=== PATIENT | female | born 2000 | race African-American/Black ===

== ENCOUNTER 2018-05-06 05:55 | Day surgery (SDC) | payer OTHER ==
[~2018-05-06] VITALS: Ht 154.9 cm; Wt 70.3 kg
[2018-05-06] MEDS ORDERED: BUPIVACAINE-MPF/EPI 0.5% 30 ML VIAL INJ ONE (08:38)
[2018-05-06] MEDS ORDERED: ACETAMINOPHEN/CODEINE 300/30MG 1 TAB PO PRN (08:40)
[2018-05-06] MEDS ORDERED: MORPHINE SULFATE 4 MG/ML SYR IM/IVP PRN (08:40)
[2018-05-06] MEDS ORDERED: ONDANSETRON 4 MG/2 ML VIAL IVP PRN ×2 (08:40→09:25)
[2018-05-06] MEDS ORDERED: IBUPROFEN 800 MG TAB PO PRN (08:40)
[2018-05-06] MEDS ORDERED: PROPOFOL 200 MG/20 ML VIAL IV ONE (08:50)
[2018-05-06] MEDS ORDERED: DEXAMETHASONE 4 MG/ML VIAL ONE (08:50)
[2018-05-06] MEDS ORDERED: SEVOFLURANE 250 ML BTL INH ONE (08:50)
[2018-05-06] MEDS ORDERED: ONDANSETRON 4 MG/2 ML VIAL ONE (08:50)
[2018-05-06] MEDS ORDERED: SUCCINYLCHOLINE CHLORIDE 200 MG/10 ML VIAL IVP ONE (08:50)
[2018-05-06] MEDS ORDERED: MIDAZOLAM 2 MG/2 ML VIAL ONE (08:51)
[2018-05-06] MEDS ORDERED: fentaNYL 0.05 MG/ML VIAL ONE (08:51)
[2018-05-06] MEDS ORDERED: MEPERIDINE 50 MG/ML SYR ONE (08:52)
[2018-05-06] MEDS ORDERED: diphenhydrAMINE 50 MG/ML VIAL IVP PRN (09:25)
[2018-05-06] MEDS ORDERED: MEPERIDINE 25 MG/ML SYR IVP PRN (09:25)
[2018-05-06] MEDS: HYDROmorphone 1 MG/ML AMP IVP PRN ×2 (10:20→10:30)
[2018-05-06] MEDS ORDERED: HYDROmorphone PFS 2 MG/ML SYR ONE (10:26)
[2018-05-06] MEDS: LACTATED RINGERS 1,000 ML IV SCH ×2 (10:33→10:42)
== END 2018-05-06 12:05 | disposition home or self-care (01) ==
LOC: MDS 05:55 → MMU 06:06 → MDS 12:05
PROVIDERS: ATTEND Obstetrics & Gynecology
DX: N83.292 Other ovarian cyst, left side (principal); N83.291 Other ovarian cyst, right side; N94.6 Dysmenorrhea, unspecified; Z98.890 Other specified postprocedural states; Z72.0 Tobacco use; Z88.6 Allergy status to analgesic agent; Z88.5 Allergy status to narcotic agent
CPT/HCPCS: 58662; 82374; J0330; J0690; J1100; J1170; J2250; J2405; J2704; J3010; J3490; J7060; J7120; J2175

== ENCOUNTER 2018-05-10 14:39 | Emergency (ER) | payer OTHER ==
[~2018-05-10] VITALS: Ht 154.9 cm; Wt 70.3 kg
[2018-05-10 14:44] VITALS: BP 135/73
--- NOTE | 2018-05-10 14:55 | NUR ---
PT AMBULATED TO ED BED 9 BY [facility]. Abd pain/back pain s/p surgery 5 days ago, had a laparscopic surgery to remove cyst, but per pt,"they didn't remove it b/c she had a lot of scar tissue secondary to ." No redness or swelling noted to incision site. Pt denies fevers.naysea/vomtting. Last BM 6 days ago, passing gas. Pain 10/10. On [place], but making her itch a lot. ABD SOFT TENDER. med hx: none Rx:norco
[2018-05-10] MEDS ORDERED: NACL 0.9% 1,000 ML IV SCH (14:57)
[2018-05-10] MEDS ORDERED: ONDANSETRON 4 MG/2 ML VIAL IVP ONE (15:00)
[2018-05-10] MEDS ORDERED: fentaNYL 0.05 MG/ML VIAL IVP ONE (15:00)
[2018-05-10 15:22] LABS: BASOPHILS % (AUTO) 0.2 % (0.0-2.0); EOSINOPHILS # (AUTO) 0.1 K/uL (0-0.4); HEMATOCRIT 42.4 % (36-48); HEMOGLOBIN 13.7 g/dL (12.0-16.0); LYMPHOCYTES % (AUTO) 15.8 % (20.5-51.1); MEAN CORPUSCULAR HEMOGLOBIN 29 pg (27-31); MEAN CORPUSCULAR HGB CONC 32 g/dL (33-37); MEAN CORPUSCULAR VOLUME 89.7 fL (80-94); MONOCYTES # (AUTO) 0.9 K/uL (0.8-1.0); MONOCYTES % (AUTO) 7.1 % (1.7-9.3); NEUTROPHILS # (AUTO) 9.5 K/uL (1.8-7.7); NEUTROPHILS % (AUTO) 75.9 % (42.2-75.2); PLATELET COUNT (AUTO) 306 K/uL (140-450); RED BLOOD CELL COUNT(AUTO) 4.73 MIL/uL (4.20-5.40); RED CELL DISTRIBUTION WIDTH 13.2 % (11.6-13.7); WHITE BLOOD COUNT (AUTO) 12.6 K/uL (4.5-11.0)
[2018-05-10 15:41] LABS: ANION GAP 12.7 (8-16); CARBON DIOXIDE 25.4 mmol/L (21-32); CREATININE 0.6 mg/dL (0.6-1.3); POTASSIUM 4.1 mmol/L (3.5-5.1)
--- NOTE | 2018-05-10 15:42 | NUR ---
EDMD OKAYED GIVING PAIN MEDICATION WITHOUT URINE HCG D/T SEVERITY OF PAIN PT WAS IN.
[2018-05-10 15:45] LABS: ALBUMIN 3.9 g/dL (3.4-5.0); TOTAL BILIRUBIN 0.3 mg/dL (0.0-1.0)
--- NOTE | 2018-05-10 16:55 | NUR ---
handed pt 3rd cup of b50---sphtehmqky to provide urine sample
[2018-05-10 17:21] VITALS: BP 128/69
[2018-05-10 17:22] LABS: APPEARANCE,URINE CLEAR (CLEAR); BILIRUBIN,URINE NEGATIVE (NEGATIVE); BLOOD, URINE NEGATIVE (NEGATIVE); COLOR,URINE YELLOW (YELLOW); LEUKOCYTE ESTERASE ,URINE NEGATIVE (NEGATIVE); NITRITE, URINE NEGATIVE (NEGATIVE); UGLUCOSE NEGATIVE (NEGATIVE)
--- NOTE | 2018-05-10 17:22 | NUR ---
Patient discharged with v/s stable. Written and verbal after care instructions given and explained. Patient alert, oriented and verbalized understanding of instructions. Ambulatory with steady gait. All questions addressed prior to discharge. ID band removed. Patient advised to follow up with PMD. Rx of tramadol and benadry given. Patient educated on indication of medication including possible reaction and side effects. Opportunity to ask questions provided and answered.
== END 2018-05-10 17:22 | disposition home or self-care (01) ==
LOC: MED 14:39
DX: G89.4 Chronic pain syndrome (principal); R10.2 Pelvic and perineal pain; Z88.6 Allergy status to analgesic agent; Z88.5 Allergy status to narcotic agent
CPT/HCPCS: 36415; 80053; 81003; 81025; 83690; 85025; 96374; 96375; 99285; J2405; J3010; J7030

== ENCOUNTER 2019-12-06 14:25 | Emergency (ER) | payer OTHER ==
[~2019-12-06] VITALS: Ht 154.9 cm; Wt 90.7 kg
[2019-12-06 14:32] VITALS: BP 115/72
--- NOTE | 2019-12-06 14:39 | NUR ---
Patient ambulated to bed 11. RN evaluating patient at bedside.
--- NOTE | 2019-12-06 14:46 | NUR ---
19 Y/O FEMALE C/O LT FOOT PAIN S/P FALLING WHILE INTOXICATED 3 DAYS AGO. PT STATES INCREASED PAIN WITH AMBULATION. WAS SEEN AT OUTLOOK ON FRIDAY AND XRAYS TAKEN, WAS TOLD SHE HAD BRUISE, INCREASED PAIN SINCE. 03/17 ACHING PAIN TO LT HEEL. HAS NOT TAKEN ANY PAIN MEDS. +CMS, +PULSES. LMP 11/24/2019. VSS. HOB ELEVATED. MEDHX: DENIES ALLERGIES: NKA
--- NOTE | 2019-12-06 14:47 | NUR ---
RADIOLOGY AT BEDSIDE
--- NOTE | 2019-12-06 15:17 | NUR ---
DR GUERRERO AT BEDSIDE EXAMINING PT
[2019-12-06 15:25] VITALS: BP 115/72
== END 2019-12-06 15:26 | disposition home or self-care (01) ==
LOC: MED 14:25
DX: S90.32XA Contusion of left foot, initial encounter (principal); Z98.890 Other specified postprocedural states; X58.XXXA Exposure to other specified factors, initial encounter; Y93.89 Activity, other specified; Y92.89 Other specified places as the place of occurrence of the external cause; Y99.8 Other external cause status
CPT/HCPCS: 73630; 99283; Q0092

== ENCOUNTER 2020-02-25 02:00 | Emergency (ER) | payer OTHER ==
[~2020-02-25] VITALS: Ht 157.5 cm; Wt 86.2 kg
[2020-02-25 02:06] VITALS: BP 119/64
[2020-02-25 03:02] VITALS: BP 119/64
== END 2020-02-25 03:03 | disposition home or self-care (01) ==
LOC: MED 02:00
DX: M79.645 Pain in left finger(s) (principal)
CPT/HCPCS: 73130; 99283; Q0092